=== PATIENT | male | born 1970 | race Caucasian/White ===

== ENCOUNTER 2022-08-22 10:34 | Emergency (ER) | payer OTHER ==
[2022-08-22 10:48] VITALS: BMI 25.8
[2022-08-22] MEDS ORDERED: ACETAMINOPHEN 325 MG TABLET (FP) PO ONE (12:08)
[2022-08-22] MEDS ORDERED: ACETAMINOPHEN 325 MG TABLET (FP) ONE (12:26)
[2022-08-22 12:39] LABS: BASO % 0.5 % (0-2.0); EOS % 0.1 % (0-4.5); HEMATOCRIT 43.6 % (35.4-49); HEMOGLOBIN 14.3 GM/dL (11.7-16.9); LYMPH % 16.5 % (8-40); MCH 28.3 pg (25.7-33.7); MCHC 32.7 g/dl (32.0-35.9); MEAN CELL VOLUME 86.6 fl (80-96); MONO % 6.5 % (3.8-10.2); NEUT % 76.4 % (42.8-82.8); PLATELET COUNT 191 10^3/uL (134-434); RBC 5.03 M/mm3 (4.00-5.60); RDW 14.2 % (11.9-15.9); WHITE BLOOD COUNT 13.3 K/mm3 (4.0-10.0)
[2022-08-22 13:01] LABS: POTASSIUM 4.1 mmol/L (3.5-5.1)
[2022-08-22 13:03] LABS: CALCIUM 9.8 mg/dL (8.5-10.1)
[2022-08-22 13:04] LABS: ALBUMIN 3.8 g/dl (3.4-5.0); BLOOD UREA NITROGEN 8.9 mg/dL (7-18)
[2022-08-22 13:08] LABS: BILIRUBIN,TOTAL 0.9 mg/dL (0.2-1)
[2022-08-22 13:50] VITALS: BP 128/81; PULSE 77; RESP 18
[2022-08-22 13:53] VITALS: TEMP 100.1
[2022-08-22] MEDS ORDERED: AMOX TR/POT CLAV 875MG/125MG TABLETS (FP) PO ONE (14:04)
[2022-08-22] MEDS ORDERED: AMOX TR/POT CLAV 875MG/125MG TABLETS (FP) ONE (14:14)
== END 2022-08-22 14:18 | disposition home or self-care (01) ==
LOC: JER 10:34
DX: R51.9 Headache, unspecified (principal); R50.9 Fever, unspecified; R42 Dizziness and giddiness; R09.81 Nasal congestion; J01.90 Acute sinusitis, unspecified; Z20.822 Contact with and (suspected) exposure to COVID-19
CPT/HCPCS: 0241U-QW; 36415; 80053; 85025; 99283-25